=== PATIENT | male | born 1955 | race Caucasian/White ===

== ENCOUNTER 2021-12-21 11:38 | Outpatient (CLI) | payer OTHER, SELFPAY ==
--- NOTE | ~2021-12-21 | CT_ITS ---
EXAMINATION: CT abdomen wo con EXAM DATE: 12/21/2021 13:00 INDICATION: R10.84 - Generalized abdominal pain. Mid to low abdominal pain. TECHNIQUE: Spiral CT of the abdomen was performed without contrast. Axial, coronal and sagittal david ges of the abdomen and pelvis were reviewed. The dose-length product (DLP) for this examination was 1091.39 mGy-cm. The exposure was tailored according to patient size (auto mA exposure control), and iterative reconstruction (ASIR) was used as additional dose reduction technique. Comparison is made t o prior examination from 03/21/2019. FINDINGS: Atrophic cirrhotic liver small amount of ascites. Moderate generalized body wall fat strand ing. Common bile duct stent appears to be extending from gallbladder into the duodenum. Kidneys are moderate to severely atrophic. No hydronephrosis. Scattered periportal lymph nodes upper limits of normal in size. Some scattered colonic diverticula without definite adjacent inflammation but sensitively decreased f rom ascites and generalized fat stranding. The stomach and small bowel are unremarkable. There is ex pected amount of colonic stool. No free intraperitoneal gas. There is cardiomegaly. The lung bas es are unremarkable. There are no osteoblastic or osteolytic lesions identified. IMPRESSION: 1. Cirrhosis, small amount of ascites. Generalized fat stranding. 2. Scattered colonic diverticulosis. 3. Renal atrophy. 4. Biliary stent in position. 5. Cardiomegaly. Reviewed, dictated and finalized at location B.
== END 2021-12-21 11:39 | disposition home or self-care (01) ==
PROVIDERS: PCP Internal Medicine; Visit Provider Internal Medicine
DX: R10.84 Generalized abdominal pain (principal); K74.60 Unspecified cirrhosis of liver; R18.8 Other ascites; K57.90 Diverticulosis of intestine, part unspecified, without perforation or abscess without bleeding; N26.1 Atrophy of kidney (terminal); Z96.0 Presence of urogenital implants; I51.7 Cardiomegaly
CPT/HCPCS: 74150

== ENCOUNTER 2021-12-31 10:59 | Inpatient (IN) | payer OTHER, SELFPAY ==
[2021-12-31] VITALS (11 sets, daily range): BP systolic 101–121; BP diastolic 60–89; PULSE 79–108; RESP 16–28; TEMP 36.1–36.3; O2SAT 95–100
--- NOTE | ~2021-12-31 | XR_ITS ---
EXAMINATION: XR chest 2V EXAM DATE: 12/31/2021 12:03 INDICATION: Weakness, shortness of breath, dialysis. TECHNIQUE: Frontal and lateral projections of the chest obtained and reviewed. Comparison is made to prior examination from 05/08/2019. FINDINGS: There is cardiomegaly and pulmonary vascular congestion. There is indistinct reticulation with a bibasal predominance which may indicate pulmonary edema. Small bilateral pleural effusions. No pneumothorax. Right-sided double-lumen dialysis catheter, tip projecting over the right atrium. IMPRESSION: 1. Findings consistent with mild CHF exacerbation. Reviewed, dictated and finalized at location B.
--- NOTE | ~2021-12-31 | CT_ITS ---
EXAMINATION: CT brain wo con DATE: 12/31/2021 14:36 INDICATION: Confusion. Weakness. TECHNIQUE: Computed tomography (CT) of the head was performed without intravenous contrast. The mA wa s adjusted according to patient size. Iterative reconstruction technique was employed. The dose-lengt h product was 681.00 mGy-cm. COMPARISON: None FINDINGS: There are scattered areas of low attenuation in the cerebral white matter. There is no intr acranial hemorrhage, acute infarction, or abnormal intracranial mass lesion. The ventricles are popeye l in size. There are likely changes of ocular lens replacement surgeries. There is mild mucosal thick ening in the paranasal sinuses. The mastoid air cells are normal. IMPRESSION: 1. Moderate nonspecific cerebral white matter disease, which likely represents chronic small vessel i schemic disease. Reviewed, dictated and finalized at location A. IMPRESSION: 1. Moderate nonspecific cerebral white matter disease, which likely represents chronic small vessel ischemic disease.
--- NOTE | 2021-12-31 11:19 | ECG_ITS ---
Measurements Intervals [place] Rate: 71 P: LA: 0 QRS: 269 QRSD: 136 T: 112 QT: 463 QTc: 505 Interpretive Statements ATRIAL FIBRILLATION LEFT BUNDLE BRANCH BLOCK COMPARED TO ECG 05/08/2019 06:12:00 NO DIFFERENCE Electronically Signed On 12-31-2021 15:46:45 CDT by Asa Fox M.D.
[2021-12-31 11:36] LABS: Basophils Absolute Auto 0.1 K/mm3 (0.0-0.1); Eosinophils Absolute Auto 0.1 K/mm3 (0-0.3); Eosinophils Percent Auto 1.6 % (0-4.4); Hematocrit 37.8 % (42.0-52.0); Hemoglobin 12.2 g/dL (14.0-18.0); Immature Granulocyte Absolute 0.03 K/mm3 (0.00-0.031); Immature Granulocyte Percent A 0.5 % (0-0.5); Immature Platelet Fraction Pct 1.6 % (0.9-11.2); Lymphocytes Absolute Auto 1.55 K/mm3 (0.9-3.2); Lymphocytes Percent Auto 27.1 % (18.3-44.2); Mean Corpuscular HGB Conc 32.3 g/dl (32-36); Mean Corpuscular Hemoglobin 31.5 pg (26-34); Mean Corpuscular Volume 97.7 fl (80-100); Mean Platelet Volume 9.8 fl (7.4-10.4); Monocytes Absolute Auto 0.8 K/mm3 (0.1-0.6); Monocytes Percent Auto 13.3 % (2.6-8.5); Neutrophils Absolute Auto 3.2 K/mm3 (1.3-6.7); Neutrophils Percent Auto 56.5 % (45.5-73.1); Platelet Count Result 137 k/mm3 (150-375); Red Blood Count 3.87 M/mm3 (4.6-6.20); Red Cell Distribution Width 15.6 % (11.5-14.5); White Blood Count 5.7 K/mm3 (4.5-10.0)
--- NOTE | 2021-12-31 13:51 | ED.WEAKNESS ---
HPI - Weakness General Chief complaint: Weakness Stated complaint: weakness s/p dialysis Time Seen by Provider: 12/31/21 13:30 Source: family ( and daughter), RN notes reviewed and old records reviewed Mode of arrival: wheelchair Limitations: altered mental status History of Present Illness HPI Narrative: This is a 66 year old male with history of depression, ESRD on dialysis, hyperlipidemia who presents for evaluation of weakness. Patient received his dialysis today as normal, and his family reports he is weaker than normal since dialysis. He is normally weak but they states he is confused and unable to walk. They deny an recent falls. Patient is oriented to person, place and age. HE is confused about the year. Family reports pain has been dealing with intermittent left lower abdominal pain with diarrhea for a few months. Patient denies abdominal pain. His family reports he had stool studies and CT abdomen performed last week that were normal. Patient was started on Mirtazapine 1 week ago for depression. His also states patient has insomnia and he did not sleep last night. Related Data Home Medications Medication Instructions Recorded Confirmed aspirin 81 mg tablet,delayed 81 mg PO DAILY 09/28/19 12/21/21 release cholecalciferol (vitamin D3) 10 400 unit PO DAILY 09/28/19 12/21/21 mcg (400 unit) capsule esomeprazole magnesium 20 mg 20 mg PO BID cap 01/25/20 12/21/21 capsule,delayed release acetaminophen 500 mg capsule 500 mg PO Q6H PRN 10/09/21 12/21/21 Allergies Allergy/AdvReac Type Severity Reaction Status Date / Time sulfamethizole Allergy Severe Dyspnea / Verified 12/21/21 10:34 SOB sulfamethoxazole Allergy Severe Dyspnea / Verified 12/21/21 10:34 SOB trimethoprim Allergy Severe Dyspnea / Verified 12/21/21 10:34 SOB Review of Systems Review of Systems: ROS unobtainable: Yes unobtainable due to mental status PMFSH Past Medical History Medical History Asymptomatic Campylobacter antigen positive Elevated lipids Hypertension Kidney disease Myocardial infarction Surgical History Surgical History Status post insertion of dialysis catheter Family History Family History Father Family history of malignant neoplasm, Onset Age: 69 Mother Cerebrovascular accident, Onset Age: 88 Social History Social History Second hand tobacco smoke exposure: Yes Alcohol intake: current Alcohol use details: Rarely 1-2 Beers a Month Substance use: never Substance use type: does not use Exam Const: General: no acute distress Nutritional Appearance: obese Orientation/consciousness: confusion Eyes: Pupils: Equal, round and reactive pupils present EOM: EOMs intact bilaterally Chest: Chest palpation & inspection: normal inspection of the chest Resp: Effort & Inspection: normal respiratory effort and no retractions Auscultation: clear to auscultation bilaterally Cardio: Rate: regular rate Rhythm: regular rhythm Heart sounds: no murmurs GI: Inspection: distended GI Palp: Yes Soft to palpation, No Tenderness to palpation present (GI), No Guarding due to palpation present (GI) and No Rigid due to palpation Auscultation: normal bowel sounds Back/Spine/Pelvis: Back: no CVA tenderness Skin: General skin exam: normal color Rashes: no rashes Neuro: General: moves all extremities, no meningeal signs, no focal motor deficits and CN's II-XI intact bilaterally Speech: normal speech Course Reevaluation(s) Reevaluation #1: I have spoke with Dr. Headley who will dialyze patient if needed. PAtient has been found to have elevated ammonia as likely cause of confusion. [facility] has accepted patient to hospitalist service.
[2021-12-31 14:02] LABS: Alveolar/Arterial O2 Gradient 31.3 mmHg; Base Excess ABG 0.8 mEq/l (+/-2.0); Fractional Inspired Oxygen 21 %; HCO3 ABG 23.8 mEq/l (22.0-26.0); Methemoglobin ABG 0.3 %THb (0-1.5); Oxygen Content ABG 17.1 %vol (16.0-22.0); Oxygen Saturation ABG 96.5 % (95.0-100.0); Oxyhemoglobin 93.4 % THb (90.0-100.0); PO2 ABG 78.9 mmHg (80.0-100.0); PO2 FiO2 Ratio Arterial Blood 3.76 %; Reduced Hemoglobin 5.3 %THb (0-5.0); pH ABG 7.476 (7.350-7.450)
[2021-12-31 14:03] LABS: Device ROOM AIR; Modified Allen's Test Pass; Site Drawn RIGHT RADIAL
[2021-12-31 15:28] LABS: Ammonia 117 umol/L (9-30); INR 1.4; Prothrombin Time 16.6 Seconds (11.1-14.7)
[2021-12-31 15:29] LABS: Partial Thromboplastin Time 37.3 SECONDS (22.3-36.8)
[2021-12-31] MEDS: LACTULOSE 20 GM/30 ML UDC PO (15:43)
[2021-12-31 16:57] LABS: Alanine Aminotransferase 15 U/L (4-50); Albumin Level 3.6 g/dL (3.5-5.1); Alkaline Phosphatase 183 U/L (38-126); Anion Gap 13 mmol/L (8-16); Aspartate Amino Transferase 37 U/L (17-59); Bilirubin,Total 2.5 mg/dL (0.2-1.3); Blood Urea Nitrogen 35 mg/dL (9-20); Calcium 8.1 mg/dL (8.4-10.2); Carbon Dioxide 25 mmol/L (22-30); Chloride 99 mmol/L (98-107); Estimated CRCL calculation 14 ml/min; Estimated Glomerular Filt Rate 9; Glucose 81 mg/dL (65-110); Sodium 137 mmol/L (137-145)
--- NOTE | 2021-12-31 18:25 | PC.NURSE ---
This patient, Haim Hickman Jr., was admitted to 3 Med Surg Room 305-01. Patient/family oriented to hospital policies and general routines including ID bracelet, bed and alarms, visiting hours, pain management, procedures, bathroom and other care routines, personal items, smoking policy, room service/diet, and visiting hours.Report received from Addie OLEARY. Information on how to activate the Rapid Response Team has been discussed. Patient/Family are encouraged to report perceived risks to care and to ask questions if they do not understand what they are told or what they should do.
--- NOTE | 2021-12-31 18:30 | PM.IMHP ---
H&P: HPI History of Present Illness Date/Time: 12/31/21 18:30 Chief Complaint: Weakness, confusion. 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 He was able to complete a full dialysis session this morning however he was quite weak thereafter. encouraged him to come in for evaluation because of the weakness and also for evaluation of confusion which she has noticed over the last couple of days. Brain CT today showed no acute findings but did note moderate nonspecific cerebral white matter disease likely representing chronic small-vessel ischemic disease. His labs seemed to be chronic and stable aside from an elevated ammonia level of 117. While he does carry a diagnosis of cirrhosis and MAYES, he does not have a gas or water meter installer into the patient and his knowledge she has no history of hyperammonemia. It was presumed that his confusion and weakness was due to the elevated ammonia level and he is being admitted in this setting. At the time my evaluation he is alert and oriented x4 and family members report that his mentation is much improved from earlier. He received lactulose in the emergency department and had a fairly large bowel movement not long thereafter. He has no specific complaints at this time and denies fever, chills, sweats, headache, cold and flu symptoms, chest pain, shortness of breath, cough, nausea, vomiting, and diarrhea. Of note he was started on mirtazapine about a week ago for depression after reportedly having suicidal thoughts 2 weeks ago. He goes on to say that he is in a much better place mentally and admits that he was having a lot of stress regarding his medical conditions at that time, and he has no active harmful thoughts or plans for suicide. Review of Systems Review of Systems: Twelve systems were reviewed. No auditory visual changes. No vertigo. No focal weakness or paresthesias. He denies pleuritic pain, chest pain, and palpitations. He has chronic lower extremity edema which is unchanged. He urinates only a very small amount. No hematuria or dysuria. He has had intermittent left mid and lower quadrant discomfort though that seems to be related to Campylobacter which she was recently treated for. No current abdominal pain. He does have a history of gallbladder disease but is considered too high risk for surgery. He previously had an ERCP and trans papillary gallbladder stent. Except as documented, all other systems were reviewed and are negative. [facility] Past Medical History Medical History (Updated 12/31/21 @ 22:33 by Elizabeth Kwon PA-C) Anemia in chronic illness Chronic anticoagulation Chronic stasis dermatitis Cirrhosis of liver Congestive heart failure Diabetic peripheral neuropathy End-stage renal disease on hemodialysis Gastroesophageal reflux disease GI bleed Secondary to peptic ulcers. Hyperlipidemia Hypertension Non-alcoholic fatty liver disease Obstructive sleep apnea Osteoarthritis Paroxysmal atrial fibrillation Severe pulmonary hypertension Type 2 diabetes mellitus Surgical History Surgical History (Updated 12/31/21 @ 22:26 by Elizabeth Kwon PA-C) History of colonoscopy with polypectomy History of endoscopic retrograde cholangiopancreatography (03/2021) With sphincterotomy, balloon stone extraction, and trans papillary gallbladder stent for history of symptomatic cholelithiasis. Status post insertion of dialysis catheter Family History Family History Father Family history of malignant neoplasm, Onset Age: 69 Mother Cerebrovascular accident, Onse
--- NOTE | 2021-12-31 23:15 | PCRCNOTE ---
Pt ordered CPAP here because he has a history of using one. Pt states that he used one about five years ago for a month or so but stopped using it because he doesn't need it. He has no desire to use one here. No machine placed in room.
[2022-01-01] VITALS (17 sets, daily range): BP systolic 92–126; BP diastolic 58–86; PULSE 79–131; RESP 16–20; TEMP 36.4–36.8; O2SAT 95–98
[2022-01-01] MEDS: CHOLECALCIFEROL 400 UNITS TABLET (VIT D) PO ×2 (00:17→08:55)
[2022-01-01] MEDS: APIXABAN 2.5 MG TABLET BY MOUTH ×3 (00:17→21:07)
[2022-01-01] MEDS: METOPROLOL TARTRATE 12.5 MG TABLET BY MOUTH ×3 (00:17→21:07)
[2022-01-01 06:11] LABS: Basophils Percent Auto 0.7 % (0.2-1.2); Eosinophils Absolute Auto 0.1 K/mm3 (0-0.3); Hematocrit 35.8 % (42.0-52.0); Hemoglobin 11.7 g/dL (14.0-18.0); Immature Granulocyte Absolute 0.03 K/mm3 (0.00-0.031); Immature Granulocyte Percent A 0.5 % (0-0.5); Lymphocytes Absolute Auto 1.39 K/mm3 (0.9-3.2); Mean Corpuscular HGB Conc 32.7 g/dl (32-36); Mean Corpuscular Hemoglobin 31.5 pg (26-34); Mean Corpuscular Volume 96.2 fl (80-100); Mean Platelet Volume 10.1 fl (7.4-10.4); Monocytes Absolute Auto 0.8 K/mm3 (0.1-0.6); Monocytes Percent Auto 13.8 % (2.6-8.5); Neutrophils Absolute Auto 3.2 K/mm3 (1.3-6.7); Platelet Count Result 115 k/mm3 (150-375); Red Blood Count 3.72 M/mm3 (4.6-6.20); Red Cell Distribution Width 15.6 % (11.5-14.5); White Blood Count 5.6 K/mm3 (4.5-10.0)
[2022-01-01 06:13] LABS: Ammonia 111 umol/L (9-30)
[2022-01-01 06:22] LABS: Alanine Aminotransferase 15 U/L (4-50); Albumin Level 3.6 g/dL (3.5-5.1); Alkaline Phosphatase 168 U/L (38-126); Anion Gap 13 mmol/L (8-16); Aspartate Amino Transferase 35 U/L (17-59); Bilirubin,Total 2.4 mg/dL (0.2-1.3); Blood Urea Nitrogen 42 mg/dL (9-20); Calcium 8.8 mg/dL (8.4-10.2); Carbon Dioxide 25 mmol/L (22-30); Chloride 101 mmol/L (98-107); Creatine Kinase 38 U/L (55-170); Estimated CRCL calculation 11 ml/min; Estimated Glomerular Filt Rate 7; Glucose 87 mg/dL (65-110); Magnesium 1.8 mg/dL (1.6-2.3); Potassium 4.2 mmol/L (3.4-5.0); Sodium 139 mmol/L (137-145)
[2022-01-01] MEDS: LACTULOSE 20 GM/30 ML UDC PO ×2 (08:49→14:08)
[2022-01-01] MEDS: PANTOPRAZOLE 40 MG TABLET PO (08:51)
[2022-01-01] MEDS: PRAVASTATIN SODIUM 10 MG TABLET PO (08:54)
[2022-01-01] MEDS: allopurinoL 150 MG TABLET PO (08:56)
[2022-01-01] MEDS: ASPIRIN 81 MG ENTERIC TABLET PO (08:56)
--- NOTE | 2022-01-01 10:07 | PM.CNNEP ---
Assessment and Plan Assessment and plan (1) End stage renal disease: Code(s): N18.6 - End stage renal disease Status: Chronic Assessment and Plan: plan HD tomorrow and contunue M/W/F schedule follow electrolytes, volume status, and clearance (2) Altered mental status: Code(s): R41.82 - Altered mental status, unspecified Status: Acute Assessment and Plan: thought to be secondary to hepatic encephalopathy (elevated ammonia) clinically better at this time on lactulose follow symptoms/mentation (3) Generalized weakness: Code(s): R53.1 - Weakness Status: Acute Assessment and Plan: due to elevated ammonia(?) PT/OT as tolerated supportive therapy (4) Non-alcoholic fatty liver disease: Code(s): K76.0 - Fatty (change of) liver, not elsewhere classified Status: Chronic Assessment and Plan: known diagnosis but does not follow with any liver specialist would likely benefit from hepatology follow-up precipitating factor with regard to elevated ammonia(?) (5) Paroxysmal atrial fibrillation: Code(s): I48.0 - Paroxysmal atrial fibrillation Status: Chronic Assessment and Plan: rate control strategy on anticoagulation (6) Type 2 diabetes mellitus: Code(s): E11.9 - Type 2 diabetes mellitus without complications Status: Chronic Assessment and Plan: diet controlled following glucose levels on labs Long and extensive discussion with both the patient as well as his at bedside (>20 minutes) regarding the above issues as well as the interventions that have been instituted in effort to optimize/correct these problems. Will continue to follow. History of Present Illness Reason for Consult Consult date: 01/01/22 Reason for consult: end stage renal disease Chief Complaint Chief complaint: Hepatic encephalopathy, ESRD on dialysis, hyperamm History of Present Illness Narrative: The patient is a 66-year-old male from extensive past medical history as outlined below who presented to [facility] Emergency room yesterday afternoon for further evaluation of weakness and confusion. Apparently, the patient presented to his outpatient dialysis clinic for his regularly scheduled dialysis treatment yesterday morning. He successfully underwent his dialysis treatment without any issues or problems but reportedly he apparently he was much weaker than usual post treatment. Furthermore, his family had noticed that he had been more confused in the past couple of days even prior to his dialysis procedure earlier that morning. Given his weakness and the apparent confusion, his family urged him to come to the emergency room following his dialysis treatment for further evaluation. Workup and evaluation emergency room demonstrated the patient to be hemodynamically stable and in no acute distress. He did feel weak but he attributed this to the fact that he just had his dialysis treatment. Routine blood test demonstrated labs consistent with his known history of end-stage renal disease and a CT scan of his head only demonstrated nonspecific cerebral white matter disease changes consistent with chronic small vessel ischemic disease. His labs did show an elevated ammonium level of 117. It was presumed that his confusion and possibly his weakness was related to this elevated ammonia level and possible component of hepatic encephalopathy. He received lactulose in the emergency room and had a fairly large bowel movement and not long after that, it almost seems that his mentation seemed to improve significantly. He gave no other acute symptoms with regard to fevers, chills, nausea, vomiting, diaphoresis, headache, chest pain, shortness of breath, or diarrhea. He does report that he was recently started on mirtazapine about a week ago as he had clinical signs/ symptoms of depression and there was some concern that he was malvin
--- NOTE | 2022-01-01 14:31 | PM.IMPN ---
Progress Note: A&P Assessment and Plan (1) Acute hepatic encephalopathy: Code(s): K72.00 - Acute and subacute hepatic failure without coma Status: Acute Assessment and Plan: Ammonia level is 117. He has had a large bowel movement after receiving lactulose in the ER and his mentation has greatly improved, per patient and family report. It seems this is the 1st time that this has occurred and we did discuss that it may be beneficial for him to follow-up with a ethylene plant operator as an outpatient. Start daily lactulose 20 mg. 01/01/2022 interval history patient presented with acute mental status and weakness was found to have ammonia level of 117 patient was given lactulose 20 which did not slightly decreased ammonia level 111 however there is significant improvement and patient mentation, is feeling much better compared to when he arrived. patient received schedule does of lactulose this morning, will give 1 extra dose today and monitor, will continue to monitor and follow-up, will have PT OT evaluate the patient, patient with a end-stage renal disease (2) Generalized weakness: Code(s): R53.1 - Weakness Status: Acute Assessment and Plan: Likely secondary to above in addition to his chronic medical problems. No focal findings noted on imaging. He seems to be feeling better at this time. (3) End-stage renal disease on hemodialysis: Code(s): N18.6 - End stage renal disease; Z99.2 - Dependence on renal dialysis Status: Chronic Assessment and Plan: Patient completed a full treatment of dialysis today. (4) Paroxysmal atrial fibrillation: Code(s): I48.0 - Paroxysmal atrial fibrillation Status: Chronic Assessment and Plan: Rate controlled on metoprolol. (5) Chronic anticoagulation: Code(s): Z79.01 - detention (current) use of anticoagulants Status: Acute Assessment and Plan: Continue apixaban for stroke to chronic AFib. (6) Type 2 diabetes mellitus: Code(s): E11.9 - Type 2 diabetes mellitus without complications Status: Chronic Assessment and Plan: Diet-controlled. Random glucose today was 81. (7) Obstructive sleep apnea: Code(s): G47.33 - Obstructive sleep apnea (adult) (pediatric) Status: Acute Assessment and Plan: CPAP provided for the patient to use while hospitalized though I think uses trilogy unit at home and ideally that would be best of his family members could bring that in for him to use. (8) Non-alcoholic fatty liver disease: Code(s): K76.0 - Fatty (change of) liver, not elsewhere classified Status: Chronic Assessment and Plan: As above I think he would benefit from seeing a ethylene plant operator as an outpatient. He was recently started on mirtazapine for depression which is extensively metabolized through the liver and perhaps this may be contributing to the elevated ammonia, thus will hold for now. (9) Depression: Code(s): F32.A - Depression, unspecified Status: Acute Assessment and Plan: The patient denies active suicidal thoughts. Recently started on mirtazapine however that is currently being held as above. Subjective Date/time seen: 01/01/22 14:31 Chief Complaint: Weakness, confusion. 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 He was able to complete a full dialysis session this morning however he was quite weak thereafter. encouraged him to come in for evaluation because of the weakness and also for evaluation of confusion which she has noticed over the last couple of d
--- NOTE | 2022-01-01 14:50 | PC.NURSE ---
On 01/01/22, the student, Sonia Finn, provided care and completed [facility] documentation on this patient. I have reviewed the student's documentation and agree with the findings.
[2022-01-02] VITALS (32 sets, daily range): BP systolic 85–129; BP diastolic 53–94; PULSE 77–109; RESP 16–18; TEMP 36.3–37; O2SAT 94–98
[2022-01-02 05:39] LABS: Ammonia 99 umol/L (9-30)
[2022-01-02 05:48] LABS: Hematocrit 38.4 % (42.0-52.0); Hemoglobin 12.3 g/dL (14.0-18.0); Immature Platelet Fraction Pct 2.2 % (0.9-11.2); Mean Corpuscular Hemoglobin 31.8 pg (26-34); Mean Corpuscular Volume 99.2 fl (80-100); Mean Platelet Volume 9.5 fl (7.4-10.4); Platelet Count Result 118 k/mm3 (150-375); Red Blood Count 3.87 M/mm3 (4.6-6.20); Red Cell Distribution Width 15.6 % (11.5-14.5); White Blood Count 5.5 K/mm3 (4.5-10.0)
[2022-01-02 05:56] LABS: Potassium 4.1 mmol/L (3.4-5.0)
[2022-01-02 05:58] LABS: Alanine Aminotransferase 17 U/L (4-50); Albumin Level 3.6 g/dL (3.5-5.1); Alkaline Phosphatase 162 U/L (38-126); Anion Gap 15 mmol/L (8-16); Aspartate Amino Transferase 38 U/L (17-59); Bilirubin,Total 3.1 mg/dL (0.2-1.3); Blood Urea Nitrogen 51 mg/dL (9-20); Calcium 8.9 mg/dL (8.4-10.2); Carbon Dioxide 23 mmol/L (22-30); Chloride 100 mmol/L (98-107); Estimated CRCL calculation 10 ml/min; Estimated Glomerular Filt Rate 6; Glucose 76 mg/dL (65-110); Magnesium 1.7 mg/dL (1.6-2.3); Sodium 138 mmol/L (137-145)
[2022-01-02 06:46] LABS: Hepatitis B Surface Antigen Negative (Negative)
[2022-01-02 07:21] LABS: Hepatitis B Surface Anti Res Positive
--- NOTE | 2022-01-02 12:14 | PM.PNNEP ---
Progress Note: A&P Assessment and Plan (1) End stage renal disease: Code(s): N18.6 - End stage renal disease Status: Chronic Assessment and Plan: HD today and contunue M/W/F schedule follow electrolytes, volume status, and clearance (2) Altered mental status: Code(s): R41.82 - Altered mental status, unspecified Status: Acute Assessment and Plan: thought to be secondary to hepatic encephalopathy (elevated ammonia) clinically better at this time on lactulose follow symptoms/mentation (3) Generalized weakness: Code(s): R53.1 - Weakness Status: Acute Assessment and Plan: due to elevated ammonia(?) PT/OT as tolerated supportive therapy (4) Non-alcoholic fatty liver disease: Code(s): K76.0 - Fatty (change of) liver, not elsewhere classified Status: Chronic Assessment and Plan: known diagnosis but does not follow with any liver specialist would likely benefit from hepatology follow-up precipitating factor with regard to elevated ammonia(?) (5) Paroxysmal atrial fibrillation: Code(s): I48.0 - Paroxysmal atrial fibrillation Status: Chronic Assessment and Plan: rate control strategy on anticoagulation (6) Type 2 diabetes mellitus: Code(s): E11.9 - Type 2 diabetes mellitus without complications Status: Chronic Assessment and Plan: diet controlled following glucose levels on labs Will continue to follow. Subjective Date/time seen: 01/02/22 12:14 Tolerating dialysis at the time of my visit (seen on HD at 12:00PM); mentation continues to improve if not remain stable at this time; no other acute issues/events overnight or earlier this morning; eating and drinking okay; no other problems/concerns voiced. Exam Narrative: General: large male in NAD Heart: normal S1 and S2; no rub Lungs: decreased at bases Abdomen: soft, nontender, nondistended, positive bowel sounds Extremities: no cyanosis or clubbing; no edema Skin: warm and dry Objective Data Vital Signs Vital Signs: Vital Signs Temp Pulse Resp BP Pulse Ox 01/02/22 12:00 80 01/02/22 08:20 88 01/02/22 06:06 125/75 01/02/22 06:03 108/74 01/02/22 06:00 36.4 C 91 18 100/59 L 97 01/02/22 04:00 78 01/02/22 00:00 81 01/01/22 23:43 97 01/01/22 22:00 36.4 C 87 18 116/83 97 01/01/22 21:07 90 01/01/22 20:00 81 Intake/Output Intake/Output: Intake & Output 12/30/21 12/31/21 01/01/22 01/02/22 23:59 23:59 23:59 23:59 Intake Total 1830 420 Output Total 0 Balance 1830 420 Meds/Results Medications: Active Medications Generic Name Dose Route Start Last Admin Trade Name Freq PRN Reason Stop Dose Admin Allopurinol 150 mg 01/01/22 09:00 01/02/22 14:50 Allopurinol 150 Mg Tablet PO 150 mg DAILY NATHANAEL Administration Apixaban 2.5 mg 12/31/21 22:45 01/02/22 14:51 Apixaban 2.5 Mg Tablet BY MOUTH 2.5 mg Q12HR NATHANAEL Administration Aspirin 81 mg 01/01/22 09:00 01/02/22 14:50 Aspirin 81 Mg Enteric Tablet PO 81 mg DAILY NATHANAEL Administration Dextrose 12.5 gm 12/31/21 22:40 Dextrose 50% 25 Gm/50 Ml Syringe IV PUSH PRN PRN Hypoglycemia Protocol Glucagon 1 mg 12/31/21 22:40 Glucagon For Inj 1 Mg Vial IM PRN PRN Hypoglycemia Protocol Glucose 15 gm 12/31/21 22:40 Glucose Oral Gel 15 Gm Of Glucse In 37.5 Gm Tube PO PRN PRN Hypoglycemia Protocol Dextrose 1,000 mls @ 100 mls/hr 12/31/21 22:40 Dextrose 5% 1,000 Ml IVPB PRN PRN Hypoglycemia Protocol Albumin Human 50 mls @ 999 mls/hr 01/02/22 07:05 Albutein IVPB 02/01/22 07:04 Q10M PRN HYPOTENSION Lactulose 20 gm 01/02/22 09:00 01/02/22 14:50 Lactulose 20 Gm/30 Ml Udc PO 20 gm QAM NATHANAEL Administration Metoprolol Tartrate 12.5 mg 01/01/22 09:00 01/02/22 14:
--- NOTE | 2022-01-02 12:14 | P.PNNP_ITS ---
Progress Note: A&P Assessment and Plan (1) End stage renal disease: Code(s): N18.6 - End stage renal disease Status: Chronic Assessment and Plan: * HD today and contunue M// schedule * follow electrolytes, volume status, and clearance (2) Altered mental status: Code(s): R41.82 - Altered mental status, unspecified Status: Acute Assessment and Plan: * thought to be secondary to hepatic encephalopathy (elevated ammonia) * clinically better at this time * on lactulose * follow symptoms/mentation (3) Generalized weakness: Code(s): R53.1 - Weakness Status: Acute Assessment and Plan: * due to elevated ammonia(?) * PT/OT as tolerated * supportive therapy (4) Non-alcoholic fatty liver disease: Code(s): K76.0 - Fatty (change of) liver, not elsewhere classified Status: Chronic Assessment and Plan: * known diagnosis but does not follow with any liver specialist * would likely benefit from hepatology follow-up * precipitating factor with regard to elevated ammonia(?) (5) Paroxysmal atrial fibrillation: Code(s): I48.0 - Paroxysmal atrial fibrillation Status: Chronic Assessment and Plan: * rate control strategy * on anticoagulation (6) Type 2 diabetes mellitus: Code(s): E11.9 - Type 2 diabetes mellitus without complications Status: Chronic Assessment and Plan: * diet controlled * following glucose levels on labs Will continue to follow. Subjective Date/time seen: 01/02/22 12:14 Tolerating dialysis at the time of my visit (seen on HD at 12:00PM); mentation continues to improve if not remain stable at this time; no other acute issues/events overnight or earlier this morning; eating and drinking okay; no other problems/concerns voiced. Exam Narrative: General: large male in NAD Heart: normal S1 and S2; no rub Lungs: decreased at bases Abdomen: soft, nontender, nondistended, positive bowel sounds Extremities: no cyanosis or clubbing; no edema Skin: warm and dry Objective Data Vital Signs Vital Signs: Vital Signs Temp Pulse Resp BP Pulse Ox 01/02/22 12:00 80 01/02/22 08:20 88 01/02/22 06:06 125/75 01/02/22 06:03 108/74 01/02/22 06:00 36.4 C 91 18 100/59 L 97 04/13/22 04:00 78 01/02/22 00:00 81 01/01/22 23:43 97 01/01/22 22:00 36.4 C 87 18 116/83 97 01/01/22 21:07 90 01/01/22 20:00 81 Intake/Output Intake/Output: Intake & Output 12/30/21 12/31/21 01/01/22 01/02/22 23:59 23:59 23:59 23:59 Intake Total 1830 420 Output Total 0 Balance 1830 420 Meds/Results Medications: Active Medications Generic Name Dose Route Start Last Admin Trade Name José Luisq PRN Reason Stop Dose Admin Allopurinol 150 mg 01/01/22 09:00 01/02/22 14:50 Allopurinol 150 Mg Tablet PO 150 mg DAILY NATHANAEL Administration Apixaban 2.5 mg 12/31/21 22:45 01/02/22 14:51 Apixaban 2.5 Mg Tablet BY MOUTH 2.5 mg Q12HR NATHANAEL Administration Aspirin 81 mg 01/01/22 09:00 01/02/22 14:50 Aspirin 81 Mg Enteric Tablet PO 81 mg DAILY NATHANAEL Admi
[2022-01-02] MEDS: allopurinoL 150 MG TABLET PO (14:50)
[2022-01-02] MEDS: METOPROLOL TARTRATE 12.5 MG TABLET BY MOUTH (14:50)
[2022-01-02] MEDS: CHOLECALCIFEROL 400 UNITS TABLET (VIT D) PO (14:50)
[2022-01-02] MEDS: ASPIRIN 81 MG ENTERIC TABLET PO (14:50)
[2022-01-02] MEDS: LACTULOSE 20 GM/30 ML UDC PO (14:50)
[2022-01-02] MEDS: PANTOPRAZOLE 40 MG TABLET PO (14:51)
[2022-01-02] MEDS: PRAVASTATIN SODIUM 10 MG TABLET PO (14:51)
[2022-01-02] MEDS: APIXABAN 2.5 MG TABLET BY MOUTH ×2 (14:51→23:28)
--- NOTE | 2022-01-02 15:08 | PC.NURSE ---
Patient is refusing glucose accu checks and states he is not a current diabetic. Attempted to educated and notified doctor. Will continue to educated and monitor.
--- NOTE | 2022-01-02 15:28 | PM.IMPN ---
Progress Note: A&P Assessment and Plan (1) Acute hepatic encephalopathy: Code(s): K72.00 - Acute and subacute hepatic failure without coma Status: Acute Assessment and Plan: Ammonia level is 117. He has had a large bowel movement after receiving lactulose in the ER and his mentation has greatly improved, per patient and family report. It seems this is the 1st time that this has occurred and we did discuss that it may be beneficial for him to follow-up with a web manager as an outpatient. Start daily lactulose 20 mg. 01/01/2022 interval history patient presented with acute mental status and weakness was found to have ammonia level of 117 patient was given lactulose 20 which did not slightly decreased ammonia level 111 however there is significant improvement and patient mentation, is feeling much better compared to when he arrived. patient received schedule does of lactulose this morning, will give 1 extra dose today and monitor, will continue to monitor and follow-up, will have PT OT evaluate the patient, patient with a end-stage renal disease. 01/02/2022 interval history patient presented with acute mental status and weakness was found to have ammonia level of 117 patient was given lactulose 20 which did slightly decreased ammonia level 111 however there is significant improvement and patient mentation, is feeling much better compared to when he arrived. patient received schedule does of lactulose on 01/01 morning, will give 1 extra doseand monitor, again there is slight improvement and patient ammonia level to 99, patient will have a will continue to monitor and follow-up, will have PT OT evaluate the patient, patient with a end-stage renal disease (2) Generalized weakness: Code(s): R53.1 - Weakness Status: Acute Assessment and Plan: Likely secondary to above in addition to his chronic medical problems. No focal findings noted on imaging. He seems to be feeling better at this time. (3) End-stage renal disease on hemodialysis: Code(s): N18.6 - End stage renal disease; Z99.2 - Dependence on renal dialysis Status: Chronic Assessment and Plan: Patient completed a full treatment of dialysis today. (4) Paroxysmal atrial fibrillation: Code(s): I48.0 - Paroxysmal atrial fibrillation Status: Chronic Assessment and Plan: Rate controlled on metoprolol. 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 (6) Type 2 diabetes mellitus: Code(s): E11.9 - Type 2 diabetes mellitus without complications Status: Chronic Assessment and Plan: Diet-controlled. Random glucose today was 81. (7) Obstructive sleep apnea: Code(s): G47.33 - Obstructive sleep apnea (adult) (pediatric) Status: Acute Assessment and Plan: CPAP provided for the patient to use while hospitalized though I think uses trilogy unit at home and ideally that would be best of his family members could bring that in for him to use. (8) Non-alcoholic fatty liver disease: Code(s): K76.0 - Fatty (change of) liver, not elsewhere classified Status: Chronic Assessment and Plan: As above I think he would benefit from seeing a web manager as an outpatient. He was recently started on mirtazapine for depression which is extensively metabolized through the liver and perhaps this may be contributing to the elevated ammonia, thus will hold for now. (9) Depression: Code(s): F32.A - Depression, unspecified Status: Acute Assessment and Plan: The patient denies active suicidal thoughts. Recently started on mirtazapine however that is currently being held as above. Subjective Date/time seen: 01/02/22 15:28 01/01/2022 interval history patient presented with acute mental status and weakness
--- NOTE | 2022-01-02 19:17 | PC.NURSE ---
Pt refused to have bed alarm on. Educated on the importance for his safety and staff knowledge but he will not allow it to be on. Will monitor regularly. Family currently at bedside.
[2022-01-02 19:47] LABS: Glucose Point of Care 98 mg/dl (65-105)
[2022-01-03] VITALS (9 sets, daily range): BP systolic 88–130; BP diastolic 54–80; PULSE 84–95; RESP 18; TEMP 36; O2SAT 94
--- NOTE | 2022-01-03 01:05 | PC.NURSE ---
Pt refusing bed alarm and helps himself to the restroom using a walker. Pt educated on safety precaution and explained that he is a fall risk. Reminded pt to use call light for assistance when needed to go to restroom, not complaint with call light thus far. Pt voices no complains at the moment and is comfortable. Call light with reach, bed in lowest position, will continue to monitor.
[2022-01-03 05:50] LABS: Hematocrit 39.6 % (42.0-52.0); Hemoglobin 12.3 g/dL (14.0-18.0); Mean Corpuscular HGB Conc 31.1 g/dl (32-36); Mean Corpuscular Hemoglobin 31.3 pg (26-34); Mean Corpuscular Volume 100.8 fl (80-100); Platelet Count Result 111 k/mm3 (150-375); Red Blood Count 3.93 M/mm3 (4.6-6.20); Red Cell Distribution Width 15.7 % (11.5-14.5); White Blood Count 6.1 K/mm3 (4.5-10.0)
[2022-01-03 06:00] LABS: Ammonia 61 umol/L (9-30)
[2022-01-03 06:06] LABS: Alanine Aminotransferase 20 U/L (4-50); Albumin Level 4.1 g/dL (3.5-5.1); Alkaline Phosphatase 181 U/L (38-126); Anion Gap 13 mmol/L (8-16); Aspartate Amino Transferase 51 U/L (17-59); Bilirubin,Total 2.9 mg/dL (0.2-1.3); Blood Urea Nitrogen 41 mg/dL (9-20); Calcium 8.9 mg/dL (8.4-10.2); Carbon Dioxide 26 mmol/L (22-30); Chloride 100 mmol/L (98-107); Estimated CRCL calculation 12 ml/min; Estimated Glomerular Filt Rate 7; Glucose 92 mg/dL (65-110); Potassium 4.9 mmol/L (3.4-5.0); Sodium 139 mmol/L (137-145)
[2022-01-03 08:03] LABS: Glucose Point of Care 78 mg/dl (65-105)
[2022-01-03] MEDS: PRAVASTATIN SODIUM 10 MG TABLET PO (08:13)
[2022-01-03] MEDS: PANTOPRAZOLE 40 MG TABLET PO (08:13)
[2022-01-03] MEDS: allopurinoL 150 MG TABLET PO (08:13)
[2022-01-03] MEDS: APIXABAN 2.5 MG TABLET BY MOUTH (08:13)
[2022-01-03] MEDS: METOPROLOL TARTRATE 12.5 MG TABLET BY MOUTH (08:13)
[2022-01-03] MEDS: ASPIRIN 81 MG ENTERIC TABLET PO (08:13)
[2022-01-03] MEDS: CHOLECALCIFEROL 400 UNITS TABLET (VIT D) PO (08:14)
[2022-01-03] MEDS: LACTULOSE 20 GM/30 ML UDC PO (08:14)
--- NOTE | 2022-01-03 09:45 | PM.DS ---
DS: Admitting Diagnosis Discharge Date 01/03/2022 Admitting Diagnosis weak and confused DS: Discharge Diagnosis Discharge Diagnosis (1) Acute hepatic encephalopathy: Code(s): K72.00 - Acute and subacute hepatic failure without coma Status: Acute Assessment and Plan: Ammonia level is 117. He has had a large bowel movement after receiving lactulose in the ER and his mentation has greatly improved, per patient and family report. It seems this is the 1st time that this has occurred and we did discuss that it may be beneficial for him to follow-up with a district representative as an outpatient. Start daily lactulose 20 mg. 01/01/2022 interval history patient presented with acute mental status and weakness was found to have ammonia level of 117 patient was given lactulose 20 which did not slightly decreased ammonia level 111 however there is significant improvement and patient mentation, is feeling much better compared to when he arrived. patient received schedule does of lactulose this morning, will give 1 extra dose today and monitor, will continue to monitor and follow-up, will have PT OT evaluate the patient, patient with a end-stage renal disease. 01/02/2022 interval history patient presented with acute mental status and weakness was found to have ammonia level of 117 patient was given lactulose 20 which did slightly decreased ammonia level 111 however there is significant improvement and patient mentation, is feeling much better compared to when he arrived. patient received schedule does of lactulose on 01/01 morning, will give 1 extra doseand monitor, again there is slight improvement and patient ammonia level to 99, patient will have a will continue to monitor and follow-up, will have PT OT evaluate the patient, patient with a end-stage renal disease (2) Generalized weakness: Code(s): R53.1 - Weakness Status: Acute Assessment and Plan: Likely secondary to above in addition to his chronic medical problems. No focal findings noted on imaging. He seems to be feeling better at this time. (3) End-stage renal disease on hemodialysis: Code(s): N18.6 - End stage renal disease; Z99.2 - Dependence on renal dialysis Status: Chronic Assessment and Plan: Patient completed a full treatment of dialysis today. (4) Paroxysmal atrial fibrillation: Code(s): I48.0 - Paroxysmal atrial fibrillation Status: Chronic Assessment and Plan: Rate controlled on metoprolol. 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 (6) Type 2 diabetes mellitus: Code(s): E11.9 - Type 2 diabetes mellitus without complications Status: Chronic Assessment and Plan: Diet-controlled. Random glucose today was 81. (7) Obstructive sleep apnea: Code(s): G47.33 - Obstructive sleep apnea (adult) (pediatric) Status: Acute Assessment and Plan: CPAP provided for the patient to use while hospitalized though I think uses trilogy unit at home and ideally that would be best of his family members could bring that in for him to use. (8) Non-alcoholic fatty liver disease: Code(s): K76.0 - Fatty (change of) liver, not elsewhere classified Status: Chronic Assessment and Plan: As above I think he would benefit from seeing a district representative as an outpatient. He was recently started on mirtazapine for depression which is extensively metabolized through the liver and perhaps this may be contributing to the elevated ammonia, thus will hold for now. (9) Depression: Code(s): F32.A - Depression, unspecified Status: Acute Assessment and Plan: The patient denies active suicidal thoughts. Recently started on mirtazapine however that is currently being held as above. DS: Summary Hospital Course
--- NOTE | 2022-01-03 13:26 | PCCCNOTE ---
On 01/03/22, the student, [Ellie Phillips], provided care and completed [facility] documentation on this patient. I have reviewed the student's documentation and agree with the findings.
[2022-01-07 06:56] LABS: Hepatitis B Core Ab Total Nonreactive (Nonreactive)
== END 2022-01-03 10:40 | disposition home or self-care (01) | DRG 441 ==
LOC: ANHED 17:36 → ANH3MEDSUR 17:41
PROVIDERS: Emergency Medicine; Internal Medicine Nephrology; Physician Assistant; Admitting Provider Family Medicine; Emergency Provider General Practice; PCP Internal Medicine; Visit Provider Family Medicine
DX: K72.00 Acute and subacute hepatic failure without coma (principal); N18.6 End stage renal disease; I12.0 Hypertensive chronic kidney disease with stage 5 chronic kidney disease or end stage renal disease; R53.1 Weakness; I48.0 Paroxysmal atrial fibrillation; G47.33 Obstructive sleep apnea (adult) (pediatric); F32.A Depression, unspecified; Z99.2 Dependence on renal dialysis; Z66 Do not resuscitate; E78.5 Hyperlipidemia, unspecified; E11.42 Type 2 diabetes mellitus with diabetic polyneuropathy; I27.20 Pulmonary hypertension, unspecified; E11.22 Type 2 diabetes mellitus with diabetic chronic kidney disease; R41.82 Altered mental status, unspecified; I25.10 Atherosclerotic heart disease of native coronary artery without angina pectoris; K75.81 Nonalcoholic steatohepatitis (NASH); Z79.82 Long term (current) use of aspirin; Z79.01 Long term (current) use of anticoagulants; Z79.899 Other long term (current) drug therapy
CPT/HCPCS: 36415; 36600; 70450; 71046; 80053; 82140; 82375; 82550; 82805; 82948; 83050; 83735; 84443; 85025; 85027; 85055; 85610; 85730; 86704; 86706; 87040; 87340; 93005; 97161; 99285; A9270; G0257; G0378; J1644